=== PATIENT | female | born 1940 | race African-American/Black ===

== ENCOUNTER 2021-07-20 08:23 | Emergency (ER) | payer OTHER ==
[~2021-07-20] VITALS: Ht 172.7 cm; Wt 91.0 kg
[~2021-07-20 08:23] MED LIST: LISI20TA31
[2021-07-20 08:26] VITALS: BP 227/80
[2021-07-20] MEDS ORDERED: ACETAMINOPHEN 325MG TABLET PO ONE (09:00)
[2021-07-20] MEDS ORDERED: CYCLOBENZAPRINE 10MG TABLET PO ONE (09:00)
[2021-07-20] MEDS ORDERED: LISINOPRIL 20MG TABLET PO ONE (09:15)
[2021-07-20] MEDS ORDERED: ACET-2708 MT (11:00)
== END 2021-07-20 12:30 | disposition home or self-care (01) ==
LOC: ER 08:23
DX: S16.1XXA Strain of muscle, fascia and tendon at neck level, initial encounter (principal); M54.12 Radiculopathy, cervical region; I10 Essential (primary) hypertension; M19.90 Unspecified osteoarthritis, unspecified site; Z91.14 Patient's other noncompliance with medication regimen; X58.XXXA Exposure to other specified factors, initial encounter; Y93.89 Activity, other specified; Y92.018 Other place in single-family (private) house as the place of occurrence of the external cause
CPT/HCPCS: 72040; 73030; 81025; 99284

== ENCOUNTER 2023-04-16 05:33 | Emergency (ER) | payer MEDICARE, OTHER ==
[~2023-04-16] VITALS: Ht 172.7 cm; Wt 86.0 kg
[~2023-04-16 05:33] MED LIST changes: +ACET-2708 MT
[2023-04-16 05:36] VITALS: TEMP 98.3; O2SAT 99
[2023-04-16] MEDS ORDERED: FAMOTIDINE 20MG/2ML VIAL IV ONE (08:15)
[2023-04-16] MEDS ORDERED: KETOROLAC 30MG/ML VIAL IV ONE (08:15)
[2023-04-16] MEDS ORDERED: SODIUM CHLORIDE 0.9% 1,000 ML IV ONE (08:15)
[2023-04-16 09:11] LABS: BASOPHILS % 0.1 % (0.0-2.0); DIFFERENTIAL COMMENT 0; HEMATOCRIT. 28.1 % (36.0-48.0); HEMOGLOBIN. 9.4 g/dL (12.0-16.0); LYMPHOCYTES % 11.8 % (20.0-50.0); MEAN CORPUSCULAR HGB CONC 33.3 g/dL (31.0-37.0); MEAN PLATELET VOLUME 8.2 fl (7.4-10.4); MONOCYTES % 3.9 % (2.0-8.0); NEUTROPHILS % 84.2 % (40.0-76.0); PLATELET 277 x1000/uL (130-400); RED BLOOD CELL COUNT 2.76 mill/uL (4.2-5.4); RED CELL DISTRIBUTION WIDTH 13.1 % (11.6-14.6); WHITE BLOOD COUNT 4.2 x1000/uL (4.5-11.0)
[2023-04-16 09:17] LABS: CHLORIDE 103 mEq/L (98-107); INDEX HEMOLYSI 1 (1-3); INDEX ICTERIC 1 (1-4); INDEX LIPEMIC 1 (1-3); SODIUM 141 mEq/L (136-145)
[2023-04-16 09:19] LABS: INR 1.1; PROTHROMBIN TIME 11.5 sec (9.6-11.0)
[2023-04-16 09:20] LABS: HCG SCREEN NEGATIVE
[2023-04-16 09:28] LABS: ALANINE AMINOTRANSFERASE 24 IU/L (13-61); ALBUMIN 3.3 g/dL (3.4-5.0); ASPARTATE AMINOTRANSFERASE 13 IU/L (15-37); BILIRUBIN TOTAL 0.9 mg/dL (0.1-1.0); CALCIUM 9.8 mg/dL (8.5-10.1); CARBON DIOXIDE 34 mEq/L (21-32); CREATININE 0.9 mg/dL (0.6-1.3); GLUCOSE 139 mg/dL (70-105); PROTEIN TOTAL 6.9 g/dL (6.0-8.3); TROPONIN I HIGH SENSITIVITY 21 ng/L (<54); UREA NITROGEN BLOOD 25 mg/dL (7-21)
[2023-04-16] MEDS ORDERED: POTASSIUM CHLORIDE 20MEQ/PACKET PO NR (10:00)
[2023-04-16] MEDS ORDERED: ONDANSETRON HCL 4MG/2ML INJ IV ONE (11:15)
[2023-04-16 11:24] LABS: CLARITY URINE CLEAR (CLEAR); COLOR URINE YELLOW (YELLOW); GLUCOSE URINE NEGATIVE (NEGATIVE); KETONES URINE TRACE (NEGATIVE); LEUKOCYTE ESTERASE URINE NEGATIVE (NEGATIVE); NITRITE URINE NEGATIVE (NEGATIVE); OCCULT BLOOD URINE NEGATIVE (NEGATIVE); PH URINE 7.5 (4.5-8.0); PROTEIN URINE 1+ (NEGATIVE); SPECIFIC GRAVITY URINE 1.022 (1.005-1.030)
[2023-04-16 11:26] LABS: BACTERIA URINE NONE SEEN; SQUAMOUS EPITHELIAL CELL URINE 1+ /lpf (RARE/1+); WBC URINE 0-2 /hpf (0-2); YEAST URINE NONE SEEN
[2023-04-16 11:38] LABS: MUCUS URINE 1+ /lpf (< = 2+)
[2023-04-16 11:39] LABS: HYALINE CASTS URINE 0-5 /lpf
[2023-04-16 11:40] LABS: RBC URINE 0-2 /hpf (0-2)
[2023-04-16] MEDS ORDERED: DOCU283E5 RC (13:23)
[2023-04-16] MEDS ORDERED: ONDA4TAB11 PO (13:23)
[2023-04-16 13:56] VITALS: BP 138/59; PULSE 83; RESP 20
== END 2023-04-16 13:57 | disposition home or self-care (01) ==
LOC: ER 05:33
DX: R10.9 Unspecified abdominal pain (principal); M19.90 Unspecified osteoarthritis, unspecified site; I10 Essential (primary) hypertension
CPT/HCPCS: 99285; 74176; 96374; 96361; 96375; 80053; 81003; 84703; 83605; 83690; 85025; 85610; 84484; 36415; J3490; J1885; J2405; J7030; C1893

== ENCOUNTER 2024-06-23 01:41 | Emergency (ER) | payer MEDICARE ==
[~2024-06-23] VITALS: Ht 175.3 cm; Wt 90.0 kg
[~2024-06-23 01:41] MED LIST changes: +DOCU283E5 RC; +ONDA-239 PO
[2024-06-23 01:42] VITALS: O2SAT 98
[2024-06-23 03:15] VITALS: BP 133/69; PULSE 88; RESP 16; TEMP 36.83628; O2SAT 99
== END 2024-06-23 03:15 | disposition home or self-care (01) ==
LOC: ER 01:41
DX: M25.572 Pain in left ankle and joints of left foot (principal); M10.9 Gout, unspecified; C90.00 Multiple myeloma not having achieved remission; I10 Essential (primary) hypertension
CPT/HCPCS: 36415; 73610; 84550; 99284